=== PATIENT | male | born 1990 | race Hispanic/Latino ===

== ENCOUNTER 2022-07-31 00:03 | Emergency (ER) | payer SELFPAY | END 2022-07-31 02:09 | disposition home or self-care (01) | LOC: ERS 00:03 | DX: B34.9 Viral infection, unspecified (principal) | CPT/HCPCS: 99283 ==

== ENCOUNTER 2023-11-19 03:12 | Emergency (ER) | payer BC, SELFPAY ==
[2023-11-19] MEDS ORDERED: Ibuprofen 800 MG TAB ONE (03:43)
[2023-11-19] MEDS ORDERED: Dexamethasone 4 MG TAB ONE (03:44)
[2023-11-19] MEDS ORDERED: AMOXicillin 250 MG CAP ONE ×2 (04:29→04:30)
[2023-11-19 04:30] LABS: SARS-CoV-2 NAA Rapid Test Not Detected (NotDetected)
== END 2023-11-19 04:40 | disposition home or self-care (01) ==
LOC: ERS 03:12
DX: J02.0 Streptococcal pharyngitis (principal)
CPT/HCPCS: 71045; 87430; J8540; U0002